=== PATIENT | female | born 1990 | race African-American/Black ===

== ENCOUNTER 2019-01-22 21:25 | Emergency (ER) | payer SELFPAY ==
[~2019-01-22] VITALS: Ht 160 cm; Wt 113.4 kg
[2019-01-22 21:45] VITALS: BP 148/91
[2019-01-22 22:19] LABS: Basophils # (auto) 0 uL; Basophils % (auto) 0.5 % (0.0-2.0); Eosinophils # (auto) 0.1 uL; Hemoglobin 8.1 g/dL (12.2-16.2); Lymphocytes # (auto) 2.4 uL; Lymphocytes % (auto) 31.4 % (10.0-50.0); Neutrophils # (auto) 4.6 uL; Nucleated Red Blood Cells % 0.1 %
[2019-01-22 22:20] LABS: Eosinophils % (auto) 1.1 % (0.0-7.0); Mean Corpuscular Hemoglobin 17.4 pg (28.0-32.0); Mean Corpuscular Hgb Conc. 29.9 g/dL (32.0-36.0); Monocytes # (auto) 0.5 uL; Monocytes % (auto) 6.7 % (0.0-12.0); Neutrophils % (auto) 60.3 % (37.0-80.0); Platelet Count (auto) 504 10^3/uL (140-450); Red Blood Cells 4.66 10^6/uL (4.0-5.20); Red Cell Distribution Width 19.1 % (11.8-14.3); White Blood Cell 7.7 10^3/uL (4.4-10.8)
[2019-01-22 22:36] LABS: INR 0.98 (0.9-1.15); Partial Thromboplastin Time 25.2 sec (23.78-33.04); Prothrombin Time 10.5 sec (9.27-12.13)
[2019-01-22 22:40] LABS: Albumin 3.7 g/dL (3.4-5.0); Calcium 8.3 mg/dL (8.5-10.1); Potassium 3.7 mmol/L (3.5-5.1)
[2019-01-22 22:43] LABS: BUN/Creatinine Ratio 6.4; Bilirubin, Total 0.3 mg/dL (0.2-1.0); Total Protein 7.8 g/dL (6.4-8.2)
[2019-01-22 23:27] LABS: Urine Bacteria FEW /hpf (None Seen); Urine WBC 220 /hpf (0 - 5)
[2019-01-22 23:30] LABS: Urine Specific Gravity 1.031 (1.001-1.035)
== END 2019-01-23 05:29 | disposition left against medical advice (07) ==
LOC: ER 21:33
DX: N93.9 Abnormal uterine and vaginal bleeding, unspecified (principal); R10.30 Lower abdominal pain, unspecified; M54.5 Low back pain; Z53.21 Procedure and treatment not carried out due to patient leaving prior to being seen by health care provider
CPT/HCPCS: 36415; 80053; 81001; 84702; 85025; 85610; 85730; 86850; 86900; 86901